=== PATIENT | female | born 1980 | race Caucasian/White ===

== ENCOUNTER 2019-07-05 06:06 | Day surgery (SDC) | payer BC, SELFPAY ==
[2019-07-02 12:01] LABS: BASOPHILS # (AUTO) 0.1 X10'3 (0-0.2); BASOPHILS % (AUTO) 0.7 % (0-1); EOSINOPHILS # (AUTO) 0.1 X10'3 (0-0.9); EOSINOPHILS % (AUTO) 1.6 % (0-6); LYMPHOCYTES # (AUTO) 1.9 X10'3 (1.1-4.8); LYMPHOCYTES % (AUTO) 25.3 % (21-51); MEAN CORPUSCULAR HEMOGLOBIN 32.2 PG (27.0-31.0); MEAN CORPUSCULAR VOLUME 94.7 FL (78-98); MEAN PLATELET VOLUME 7.5 FL (7.4-10.4); MONOCYTES # (AUTO) 0.4 X10'3 (0-0.9); MONOCYTES % (AUTO) 5.4 % (2-12); NEUTROPHILS # (AUTO) 5.2 X10'3 (1.8-7.7); PRE OP HEMATOCRIT 40.5 % (35.0-45.0); PRE OP HEMOGLOBIN 13.8 g/dL (12.0-16.0); PRE OP PLATELET COUNT 291 X10'3 (140-440); RED BLOOD COUNT 4.27 X10'6 (4.20-5.60); RED CELL DISTRIBUTION WIDTH 13.3 % (11.5-14.5)
[2019-07-02 12:28] LABS: HCG SERUM QL NEGATIVE
[~2019-07-05] VITALS: Ht 172.7 cm; Wt 64.5 kg
[2019-07-05] VITALS (7 sets, daily range): BP systolic 102–121; BP diastolic 58–76
[~2019-07-05 06:06] MED LIST: NO HOME MEDS; cefazolin/dext.iso 2gm/100 ML IV ONE; famotidine 20mg tablet PO ONE; ringers solution, lacted 1,000 ML IV SCH
[2019-07-05] MEDS ORDERED: epiNEPHrine 1 mg/ml inj ONE (06:31)
[2019-07-05] MEDS ORDERED: BUPIVAcaine/PF 2.5mg/ml (0.25%) 10ml vial ONE (06:31)
[2019-07-05] MEDS ORDERED: fentaNYL/PF 50MCG/1 ML 2ML syringe ONE (07:26)
[2019-07-05] MEDS ORDERED: midazolam 2 mg/2 ml injection ONE (07:27)
[2019-07-05] MEDS ORDERED: sevoflurane 250ml liquid IH ONE (07:29)
[2019-07-05] MEDS ORDERED: ringers solution, lacted 1,000 ML IV SCH (07:29)
[2019-07-05] MEDS ORDERED: meperidine/PF 25mg/ml syringe IV PRN ×3 (07:30)
[2019-07-05] MEDS ORDERED: ondansetron/PF 4mg/2ml inj IV PRN (07:30)
[2019-07-05] MEDS ORDERED: morphine 4 MG/ML inj SYRINge IV PRN ×2 (07:30)
[2019-07-05] MEDS ORDERED: proCHLORperazine 10 MG/2 ml inj IV PRN (07:30)
[2019-07-05] MEDS ORDERED: LIDOcaine 2% (20mg/ml) 5ml vial ONE (07:32)
[2019-07-05] MEDS ORDERED: rocuronium 10mg/ml inj IV ONE (07:32)
[2019-07-05] MEDS ORDERED: propofol inj 20 ML IV ONE (07:32)
[2019-07-05] MEDS ORDERED: dexamethasone sod phosphate 4mg/ml inj. ONE (08:05)
[2019-07-05] MEDS ORDERED: ondansetron/PF 4mg/2ml inj ONE (08:05)
[2019-07-05] MEDS ORDERED: glycopyrrolate 0.2mg/ml inj ONE (08:05)
[2019-07-05] MEDS ORDERED: neostigmine methylsulfate 1 MG/ML 10ml vial ONE (08:05)
[2019-07-05] MEDS ORDERED: meperidine/PF 50mg/ml syringe ONE (08:29)
--- NOTE | 2019-07-05 08:30 | NUR ---
Received from OR via , accompanied by Anesthesiologist DR BOYKIN and report given by Anesthesiolgist. AWAKENS TO VOICE. VITALS STABLE. DRESSINGS DI. SRINIVAS PAIN. ABD SOFT.
--- NOTE | 2019-07-05 09:40 | NUR ---
AWAKE AND ORIENTED. VITALS STABLE. DRESSINGS DI. SRINIVAS PAIN. HOME WITH FAMILY AT THIS TIME.
== END 2019-07-05 09:40 | disposition home or self-care (01) ==
LOC: PAS 06:06
PROVIDERS: ATTEND Obstetrics & Gynecology
DX: Z30.2 Encounter for sterilization (principal); N93.9 Abnormal uterine and vaginal bleeding, unspecified; N80.1 Endometriosis of ovary; N80.3 Endometriosis of pelvic peritoneum; N83.202 Unspecified ovarian cyst, left side; N85.8 Other specified noninflammatory disorders of uterus; F41.9 Anxiety disorder, unspecified; F12.90 Cannabis use, unspecified, uncomplicated; Z98.890 Other specified postprocedural states; Z87.442 Personal history of urinary calculi; Z79.899 Other long term (current) drug therapy
CPT/HCPCS: 36415; 58301; 58563; 58662; 58670; 82948; 84703; 85025; A4264; A6258; J0171; J1100; J2001; J2175; J2250; J2405; J2704; J2710; J3010; J3490; J7120; A4355; A4618; A6402; A7000